=== PATIENT | male | born 2000 | race Caucasian/White ===

== ENCOUNTER 2024-07-13 06:31 | Emergency (ER) | payer OTHER ==
[~2024-07-13] VITALS: Ht 172.7 cm; Wt 64.4 kg
[~2024-07-13 06:31] MED LIST: GABA300 PO; LORA2 PO; QUETIAPINE FUMA50 M5 PO
[2024-07-13] MEDS ORDERED: Magnesium Citrate 300 ML BTL PO ONE (07:25)
[2024-07-13] MEDS ORDERED: Dicyclomine HCl 20 MG Tab PO ONE (07:25)
[2024-07-13] MEDS ORDERED: DICY20 PO (07:45)
[2024-07-13] MEDS ORDERED: MIRALAX17 GM PO (07:45)
== END 2024-07-13 07:56 | disposition home or self-care (01) ==
LOC: ER 06:31
DX: K59.00 Constipation, unspecified (principal); R10.9 Unspecified abdominal pain; Z79.899 Other long term (current) drug therapy
CPT/HCPCS: 99283; A9270

== ENCOUNTER 2024-07-15 12:45 | Emergency (ER) | payer OTHER ==
[~2024-07-15] VITALS: Ht 177.8 cm; Wt 72.6 kg
[~2024-07-15 12:45] MED LIST changes: +DICY20 PO; +MIRALAX17 GM PO
[2024-07-15] MEDS ORDERED: DIAZEPAM5 M2 PO (13:12)
[2024-07-15] MEDS ORDERED: Methocarbamol500 MG PO (13:12)
[2024-07-15] MEDS ORDERED: OXYC5 (13:12)
[2024-07-15] MEDS ORDERED: TRAM50 PO (13:12)
[2024-07-15 13:19] LABS: BASOPHILS ABSOLUTE AUTO 0.04 K/mm3 (0.00-0.23); BASOPHILS PERCENT AUTO 0 % (0-2); EOSINOPHILS ABSOLUTE AUTO 0.07 K/mm3 (0.00-0.68); EOSINOPHILS PERCENT AUTO 1 % (0-6); Hematocrit 46.9 % (37.0-53.0); Hemoglobin 16.7 g/dL (13.5-17.5); IMMATURE GRAN ABSOLUTE AUTO 0.08 K/mm3 (0.00-0.10); IMMATURE GRAN PERCENT AUTO 1 % (0-1); LYMPHOCYTES ABSOLUTE AUTO 1.86 K/mm3 (0.84-5.20); LYMPHOCYTES PERCENT AUTO 12 % (21-46); MONOCYTES ABSOLUTE AUTO 0.88 K/mm3 (0.16-1.47); MONOCYTES PERCENT AUTO 6 % (4-13); Mean Corpuscular HGB 31.1 pg (26.0-34.0); Mean Corpuscular HGB Conc 35.6 g/dL (31.5-36.5); Mean Corpuscular Volume 87 fL (80-100); Mean Platelet Volume 8.7 fL (9.1-12.4); NEUTROPHILS ABSOLUTE AUTO 12.03 K/mm3 (1.96-9.15); NEUTROPHILS PERCENT AUTO 80 % (41-73); Platelet Count 436 K/mm3 (150-400); RDW Coefficient Variation 12.7 % (11.7-14.2); RDW Standard Deviation 40.4 fL (35.1-46.3); Red Blood Cell Count 5.37 M/mm3 (4.30-5.90); White Blood Cell Count 14.96 K/mm3 (4.00-11.30)
[2024-07-15 13:44] LABS: Albumin, Blood 4.1 g/dL (3.4-5.0); Albumin/Globulin Ratio 1.1 (0.8-1.8); Bilirubin, Total 0.3 mg/dL (0.1-1.0); Bun/Creatinine Ratio 6.2 (12.0-20.0); Calcium, Blood 8.9 mg/dL (8.5-10.1); Creatinine, Blood 0.65 mg/dL (0.60-1.20); Globulin, Blood 3.7 g/dL (2.2-4.0); Potassium, Blood 3.5 mmol/L (3.5-5.5); Total Protein, Blood 7.8 g/dL (6.4-8.2)
[2024-07-15 14:28] LABS: U Amphetamine Screen Not Detected; U Barbituate Screen Not Detected; U Benzodiazapine Screen DETECTED; U Buprenorphine Screen Not Detected; U Cannabinoids Screen Not Detected; U Cocaine Screen Not Detected; U Methadone Screen Not Detected; U Methamphetamine Screen Not Detected; U Opiates Screen Not Detected; U Oxycodone Screen Not Detected; U Phencyclidine Screen Not Detected
[2024-07-15] MEDS ORDERED: Ibuprofen 600 MG Tab PO ONE (14:30)
[2024-07-15] MEDS ORDERED: IBUP600 PO (14:30)
[2024-07-15] MEDS ORDERED: Acetaminophen 500 MG Tab PO ONE (14:30)
[2024-07-15] MEDS ORDERED: ACET500 PO (14:30)
[2024-07-15] MEDS ORDERED: Diphth,Pertuss(Acell),Tet Vac 0.5 ML VIAL IM ONE (14:30)
== END 2024-07-15 14:58 | disposition home or self-care (01) ==
LOC: ER 12:45
PROVIDERS: Student in an Organized Health Care Education/Training Program
DX: S60.419A Abrasion of unspecified finger, initial encounter (principal); M54.50 Low back pain, unspecified; V43.52XA Car driver injured in collision with other type car in traffic accident, initial encounter; Z79.899 Other long term (current) drug therapy
CPT/HCPCS: 70450; 72125; 80053; 80320; 85025; 90715; 99284-25